=== PATIENT | female | born 1985 | race African-American/Black ===

== ENCOUNTER 2019-03-11 13:45 | Emergency (ER) | payer MEDICAID ==
[~2019-03-11] VITALS: Ht 162.6 cm; Wt 61.7 kg
[2019-03-11 13:47] VITALS: BP 128/88
--- NOTE | 2019-03-11 13:59 | NUR ---
Patient ambulated to bed 6 with family. RN evaluating patient at bedside.
--- NOTE | 2019-03-11 14:03 | NUR ---
PATIENT IS A 34 Y/O FEMALE WHO PRESENTS TO THE ED C/O HEADACHE. PER PT ONSET OF SYMPTOMS STARTED AT 0400 THIS MORNING. PT DENIES TRAUMA OR INJURY. PT REPORTS 10/10 ACHING R FOREHEAD PAIN THAT RADIATES TO THE NECK. PT DENIES CP ,SOB, REPORTS NAUSEA DENIES VOMITING/DIARRHEA. PT AWAKE AND ALERT, RR EVEN/UNLABORED. PT REPOSITIONED FOR COMFORT, BED IN LOWEST POSITION. ER PROVIDER NOTIFIED. WILL CONTINUE TO MONITOR. 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
--- NOTE | 2019-03-11 14:05 | NUR ---
PATIENT PROVIDED URINE CUP AT THIS TIME. PT UNABLE TO GIVE URINE AT THIS TIME.
--- NOTE | 2019-03-11 14:31 | NUR ---
PT STILL UNABLE TO GIVE URINE AT THIS TIME. PROVIDED PT WITH CUP OF WATER
[2019-03-11] MEDS ORDERED: KETOROLAC 60 MG/2 ML VIAL IM ONE (14:45)
--- NOTE | 2019-03-11 14:54 | NUR ---
PT LEFT TO CT
[2019-03-11] MEDS ORDERED: IBUPROFEN 800 MG TAB PO ONE (15:15)
--- NOTE | 2019-03-11 15:32 | NUR ---
Dr. Crouch re-evaluating patient at bedside.
[2019-03-11 15:40] VITALS: BP 122/76
--- NOTE | 2019-03-11 15:44 | NUR ---
Patient discharged with v/s stable. Written and verbal after care instructions given and explained. Patient alert, oriented and verbalized understanding of instructions. Ambulatory with steady gait. All questions addressed prior to discharge. ID band removed. Patient advised to follow up with PMD. Rx of IBU given. Patient educated on indication of medication including possible reaction and side effects. Opportunity to ask questions provided and answered.
== END 2019-03-11 15:44 | disposition home or self-care (01) ==
LOC: MED 13:45
DX: R51 Headache (principal); R11.0 Nausea; Z98.890 Other specified postprocedural states
CPT/HCPCS: 70450; 99284; J1885